=== PATIENT | male | born 1995 | race Caucasian/White ===

== ENCOUNTER 2017-06-02 15:40 | Emergency (ER) | payer BC ==
--- NOTE | 2017-06-02 15:53 | EDPHY ---
H & P Time Seen by Provider: 06/02/17 15:41 HPI/ROS: CHIEF COMPLAINT: Alcohol intoxication, status post Taser HISTORY OF PRESENT ILLNESS: Patient is a 21-year-old male who presents emergency department in police custody via EMS. Patient was intoxicated. He was placed under arrest. He attempted to run and was subsequently tased. EMS responded and the patient was not able to be cleared due to his alcohol use so he is brought to the emergency department. Patient was without complaint. Patient does report that he was drinking alcohol today. REVIEW OF SYSTEMS: My complete review of systems is negative except as mentioned in the HPI. Past Medical/Surgical History: Negative Past surgical history: Noncontributory Social history: The patient states he was drinking alcohol today. Physical Exam: Vitals noted GENERAL: Well-appearing, in no acute distress, alert. HEENT: Eyes normal to inspection, normal pharynx, no signs of dehydration. NECK: [No thyromegaly, no lymphadenopathy, supple. No spinal tenderness RESPIRATORY: Clear to auscultation bilaterally, no rales, rhonchi or wheezing. CVS: Regular rate and rhythm, no rubs, murmurs, or gallops. ABDOMEN: Soft, nontender, nondistended, no organomegaly. BACK: Normal to inspection, no CVA tenderness. SKIN: Normal color, no rash, warm, dry. No pallor. EXTREMITIES: No pedal edema, no calf tenderness, no Homans sign or cords, no joint swelling. NEURO/PSYCH: Alert. Intoxicated appearing. Normal motor sensory exam. No obvious cranial nerve deficit. Medical Decision Making ED Course/Re-evaluation: In the emergency department I met EMS on arrival. The patient appeared well on my exam. Police officers present. He will be discharged in the custody of police. I discussed the plan with the patient. Differential Diagnosis: My differential includes but is not limited to alcohol intoxication, closed- head injury, fracture, dislocation, contusion Departure - Departure Disposition: Home, Routine, Self-Care Clinical Impression: Alcoholic intoxication Qualifiers: Complication of substance-induced condition: uncomplicated Qualified Code(s): F10.920 - Alcohol use, unspecified with intoxication, uncomplicated Condition: Good Instructions: Alcohol Intoxication (ED) Additional Instructions: Return with worsening symptoms or concerns.
[2017-06-02 16:15] VITALS: BP 109/56; PULSE 79; RESP 18; TEMP 97.5; O2SAT 98
== END 2017-06-02 16:18 | disposition home or self-care (01) ==
LOC: EDUNIT#
DX: F10.920 Alcohol use, unspecified with intoxication, uncomplicated (principal)